=== PATIENT | female | born 1960 | race Caucasian/White ===

== ENCOUNTER 2017-02-19 12:49 | Inpatient (IN) | payer BC ==
[~2017-02-19] VITALS: Ht 180.3 cm; Wt 115.5 kg
[~2017-02-19 12:49] MED LIST: BENADRYL PO; LASIX 20MG TABL20 MG PO; NO HOME MEDICATIONS; SEPTRA DS 8001 TAB PO; SYNTHROID0.1 MG/TAB PO; TAMOXIFEN CITRA20 MG PO; TYLENOL 500MG500 MG PO
[2017-02-19 14:07] LABS: BASO # 0.1 (0.0-0.2); BASO % 0.3 % (0.0-2.0); EOS # 0.1 (0.0-0.7); EOS % 0.4 % (0-4.0); GRAN # 12.7 (1.4-6.5); GRAN % 79.5 % (42.2-75.2); HEMATOCRIT 37.1 % (37.0-47.0); HEMOGLOBIN 12.2 g/dl (12.5-16.0); LYMPH # 2.5 (1.2-3.4); LYMPH % 15.5 % (20.0-51.0); MEAN CELL VOLUME 84 fl (80.0-100.0); MEAN CORPUSCULAR HEMOGLOBIN 28 pg (27.0-31.0); MEAN CORPUSCULAR HGB CONC 33 g/dl (33.0-37.0); MEAN PLATELET VOLUME 8.9 fl (7.4-10.4); MONO # 0.6 (0.1-0.6); MONO % 3.9 % (1.7-9.3); PLATELET COUNT 323 K/mm3 (130-400); RED BLOOD COUNT 4.42 M/mm3 (4.10-5.30); REDCELL DISTRIBUTION WIDTH-CV 14.6 % (11.5-14.5)
[2017-02-19 14:24] LABS: ADJUSTED CALCIUM 9.5 mg/dL (8.4-10.2); ALBUMIN 3.8 gm/dL (3.5-5.0); BILIRUBIN,TOTAL 1.1 mg/dL (0.0-1.0); CALCIUM 9.3 mg/dL (8.4-10.2); CREATININE, serum 1.13 mg/dL (0.52-1.25); POTASSIUM 3.3 mmol/L (3.4-5.0); TOTAL PROTEIN 7.3 gm/dL (6.4-8.2)
[2017-02-19 14:43] LABS: C-REACTIVE PROTEIN 22.4 mg/dL (0.0-0.9)
[2017-02-19] MEDS ORDERED: SYNTHROID 0.10.15 MG PO (15:29)
[2017-02-19 17:33] VITALS: BP 116/58; PULSE 91; TEMP 98.1
[2017-02-19 17:39] VITALS: BP 116/58; PULSE 91; TEMP 98.7
[2017-02-19] MEDS ORDERED: PROAIR HFA0.09 MG/AC IH (18:11)
[2017-02-19 20:48] VITALS: BP 114/58; PULSE 82; TEMP 100.5
[2017-02-19 23:39] VITALS: BP 118/60; PULSE 97; TEMP 100
[2017-02-20 03:25] VITALS: BP 110/64; PULSE 85; TEMP 98.2
[2017-02-20 07:30] VITALS: BP 118/61; PULSE 75; TEMP 98.5
[2017-02-20 11:29] LABS: BASO # 0.1 (0.0-0.2); BASO % 0.4 % (0.0-2.0); EOS # 0.5 (0.0-0.7); EOS % 4.3 % (0-4.0); GRAN # 8.6 (1.4-6.5); GRAN % 70.8 % (42.2-75.2); LYMPH # 2.1 (1.2-3.4); LYMPH % 17.5 % (20.0-51.0); MEAN CELL VOLUME 88 fl (80.0-100.0); MEAN CORPUSCULAR HGB CONC 32 g/dl (33.0-37.0); MEAN PLATELET VOLUME 9.5 fl (7.4-10.4); MONO # 0.8 (0.1-0.6); MONO % 6.8 % (1.7-9.3); PLATELET COUNT 311 K/mm3 (130-400); RED BLOOD COUNT 3.92 M/mm3 (4.10-5.30); WHITE BLOOD COUNT 12.2 K/mm3 (4.8-10.8)
[2017-02-20 11:36] LABS: CALCIUM 8.8 mg/dL (8.4-10.2); CREATININE, serum 0.9 mg/dL (0.52-1.25); POTASSIUM 3.6 mmol/L (3.4-5.0)
[2017-02-20 11:38] LABS: HEMATOCRIT 34.3 % (37.0-47.0); MEAN CORPUSCULAR HEMOGLOBIN 28 pg (27.0-31.0)
[2017-02-20 12:18] VITALS: BP 131/63; PULSE 79; TEMP 99.2
[2017-02-20 15:38] VITALS: BP 115/65; PULSE 95; TEMP 100.3
[2017-02-20 19:48] VITALS: BP 122/69; PULSE 80; TEMP 98.4
[2017-02-20 23:47] VITALS: BP 112/54; PULSE 81; TEMP 98
[2017-02-21 03:46] VITALS: BP 118/67; PULSE 79; TEMP 98.3
[2017-02-21 07:21] VITALS: BP 123/66; PULSE 74; TEMP 98.7
[2017-02-21 07:38] LABS: BASO % 0.3 % (0.0-2.0); GRAN # 5.5 (1.4-6.5); GRAN % 55.4 % (42.2-75.2); LYMPH # 2.6 (1.2-3.4); LYMPH % 25.8 % (20.0-51.0); MEAN CELL VOLUME 86 fl (80.0-100.0); MEAN CORPUSCULAR HGB CONC 32 g/dl (33.0-37.0); MEAN PLATELET VOLUME 9.6 fl (7.4-10.4); MONO # 0.8 (0.1-0.6); MONO % 8.3 % (1.7-9.3); PLATELET COUNT 331 K/mm3 (130-400); REDCELL DISTRIBUTION WIDTH-CV 14.6 % (11.5-14.5)
[2017-02-21 07:49] LABS: CREATININE, serum 0.9 mg/dL (0.52-1.25); POTASSIUM 3.8 mmol/L (3.4-5.0)
[2017-02-21 08:04] LABS: HEMATOCRIT 34.5 % (37.0-47.0); HEMOGLOBIN 10.9 g/dl (12.5-16.0); MEAN CORPUSCULAR HEMOGLOBIN 27 pg (27.0-31.0)
[2017-02-21 08:32] LABS: C-REACTIVE PROTEIN 16.9 mg/dL (0.0-0.9)
[2017-02-21 11:36] VITALS: BP 128/68; PULSE 78; TEMP 99
[2017-02-21 15:55] VITALS: BP 130/72; PULSE 84; TEMP 99.4
[2017-02-21 20:20] VITALS: BP 125/60; PULSE 84; TEMP 98.2
[2017-02-21 23:55] VITALS: BP 121/62; PULSE 80; TEMP 98.4
[2017-02-22 03:23] VITALS: BP 102/61; PULSE 70; TEMP 97.7
[2017-02-22 07:49] VITALS: BP 108/67; PULSE 80; TEMP 99.2
[2017-02-22 09:40] LABS: BASO % 0.2 % (0.0-2.0); EOS # 1.1 (0.0-0.7); EOS % 12.9 % (0-4.0); GRAN # 4.6 (1.4-6.5); GRAN % 56.5 % (42.2-75.2); HEMOGLOBIN 12.2 g/dl (12.5-16.0); LYMPH # 1.9 (1.2-3.4); LYMPH % 23.2 % (20.0-51.0); MEAN CELL VOLUME 84 fl (80.0-100.0); MEAN CORPUSCULAR HEMOGLOBIN 28 pg (27.0-31.0); MEAN CORPUSCULAR HGB CONC 33 g/dl (33.0-37.0); MEAN PLATELET VOLUME 10.9 fl (7.4-10.4); MONO # 0.6 (0.1-0.6); MONO % 6.7 % (1.7-9.3); PLATELET COUNT 249 K/mm3 (130-400); REDCELL DISTRIBUTION WIDTH-CV 14.4 % (11.5-14.5); WHITE BLOOD COUNT 8.2 K/mm3 (4.8-10.8)
[2017-02-22 09:45] LABS: HEMATOCRIT 36.8 % (37.0-47.0)
[2017-02-22 11:07] VITALS: BP 118/67; PULSE 83; TEMP 98.9
[2017-02-22 15:20] VITALS: BP 119/70; PULSE 86; TEMP 99.3
[2017-02-22 18:19] LABS: CHLAMYDIA/TRACH by PCR Female NOT DETECTED; NEISSERIA GON by PCR Female NOT DETECTED
[2017-02-22 20:25] VITALS: BP 123/78; PULSE 98; TEMP 98.7
[2017-02-23 00:34] VITALS: BP 106/63; PULSE 70; TEMP 98.1
[2017-02-23 05:08] VITALS: BP 120/62; PULSE 67; TEMP 97.7
[2017-02-23 07:27] LABS: MEAN CELL VOLUME 85 fl (80.0-100.0); MEAN CORPUSCULAR HGB CONC 32 g/dl (33.0-37.0); MEAN PLATELET VOLUME 9.6 fl (7.4-10.4); RED BLOOD COUNT 4.21 M/mm3 (4.10-5.30); REDCELL DISTRIBUTION WIDTH-CV 14.6 % (11.5-14.5); WHITE BLOOD COUNT 9.2 K/mm3 (4.8-10.8)
[2017-02-23 07:43] LABS: ADD PATHOLOGY DIFF REVIEW NO; HEMATOCRIT 35.8 % (37.0-47.0); HEMOGLOBIN 11.5 g/dl (12.5-16.0); MEAN CORPUSCULAR HEMOGLOBIN 27 pg (27.0-31.0); PLATELET COUNT 393 K/mm3 (130-400)
[2017-02-23 07:54] LABS: CALCIUM 8.7 mg/dL (8.4-10.2); CREATININE, serum 0.87 mg/dL (0.52-1.25)
[2017-02-23 07:58] VITALS: BP 117/60; PULSE 71; TEMP 98.7
[2017-02-23 11:13] VITALS: BP 112/69; PULSE 82; TEMP 97.9
[2017-02-23 15:02] LABS: BAND 13 % (0-10); EOSINOPHIL 11 % (0-4); NEUTROPHILS 45 % (42.0-75.2); TOTAL CELLS COUNTED 100
[2017-02-23 15:03] LABS: ANISOCYTOSIS 1+; PLATELET ESTIMATE INCREASED (NORMAL)
[2017-02-23] MEDS ORDERED: CLEOCIN HCL300 MG PO (15:18)
== END 2017-02-23 16:38 | disposition home or self-care (01) | DRG 603 ==
LOC: COL.ER 12:49 → MEDICAL 14:37
PROVIDERS: Emergency Medicine; Internal Medicine Infectious Disease; Nurse Practitioner Family; Physician Assistant
DX: L03.113 Cellulitis of right upper limb (principal); L03.115 Cellulitis of right lower limb; E66.01 Morbid (severe) obesity due to excess calories; G62.9 Polyneuropathy, unspecified; E03.9 Hypothyroidism, unspecified; I87.2 Venous insufficiency (chronic) (peripheral); E87.6 Hypokalemia; J45.909 Unspecified asthma, uncomplicated; Z85.3 Personal history of malignant neoplasm of breast; Z68.35 Body mass index [BMI] 35.0-35.9, adult
CPT/HCPCS: 99223-AI; 99232-AI; 99239; J1650; J2270; J2405; J3370; J7030; J7050

== ENCOUNTER 2017-05-14 08:00 | Outpatient (RCR) | payer BC ==
[~2017-05-14 08:00] MED LIST changes: +CLEOCIN HCL300 MG PO; +PROAIR HFA0.09 MG/AC IH; +SYNTHROID 0.10.15 MG PO
== END 2017-06-05 12:49 ==
LOC: WSPT 08:00
DX: Z51.89 Encounter for other specified aftercare (principal); I97.2 Postmastectomy lymphedema syndrome; R60.1 Generalized edema; Z90.13 Acquired absence of bilateral breasts and nipples; Z85.3 Personal history of malignant neoplasm of breast; Z92.3 Personal history of irradiation

== ENCOUNTER → 2017-07-27 | Outpatient (CLI) | payer BC | LOC: COL.RAD 08:30 | DX: K57.30 Diverticulosis of large intestine without perforation or abscess without bleeding (principal); N20.0 Calculus of kidney; D25.9 Leiomyoma of uterus, unspecified | CPT/HCPCS: Q9967 ==

== ENCOUNTER 2017-09-29 14:02 | Inpatient (IN) | payer BC ==
[2017-09-29] VITALS (31 sets, daily range): BP systolic 106–123; BP diastolic 75–78; PULSE 99–104; TEMP 98–98.2; O2SAT 90–100
[~2017-09-29] VITALS: Ht 177.8 cm; Wt 101.6 kg
[2017-09-29 14:33] LABS: BASO % 0.3 % (0.0-2.0); EOS # 0.3 (0.0-0.7); EOS % 2.7 % (0-4.0); GRAN # 7.3 (1.4-6.5); GRAN % 63.1 % (42.2-75.2); HEMATOCRIT 40.3 % (37.0-47.0); HEMOGLOBIN 12.8 g/dl (12.5-16.0); LYMPH # 2.9 (1.2-3.4); LYMPH % 25.2 % (20.0-51.0); MEAN CELL VOLUME 83 fl (80.0-100.0); MEAN CORPUSCULAR HEMOGLOBIN 27 pg (27.0-31.0); MEAN CORPUSCULAR HGB CONC 32 g/dl (33.0-37.0); MEAN PLATELET VOLUME 9.3 fl (7.4-10.4); MONO % 8.4 % (1.7-9.3); PLATELET COUNT 338 K/mm3 (130-400); RED BLOOD COUNT 4.83 M/mm3 (4.10-5.30); WHITE BLOOD COUNT 11.6 K/mm3 (4.8-10.8)
[2017-09-29 14:54] LABS: ADJUSTED CALCIUM 9.4 mg/dL (8.4-10.2); ALBUMIN 4.2 gm/dL (3.5-5.0); BILIRUBIN,TOTAL 0.8 mg/dL (0.0-1.0); CALCIUM 9.6 mg/dL (8.4-10.2); CREATININE, serum 1.09 mg/dL (0.52-1.25); POTASSIUM 4.1 mmol/L (3.4-5.0); TOTAL PROTEIN 7.9 gm/dL (6.4-8.2)
[2017-09-29 15:24] LABS: TROPONIN-I 0.035 ng/mL (0.000-0.034)
[2017-09-29 15:59] LABS: INR 1.1 (0.8-3.0); PROTHROMBIN TIME 13.1 SECONDS (9.7-12.8)
[2017-09-29] MEDS ORDERED: OMEGA-3 1000 MG1 CAP PO (20:16)
[2017-09-29] MEDS ORDERED: VITAMIND3 5000 PO (20:17)
[2017-09-29] MEDS ORDERED: ASPIRIN 81M81 MG/TA2 PO (20:18)
[2017-09-29] MEDS ORDERED: NEURONTIN100 MG/CAP PO (20:20)
[2017-09-30] VITALS (848 sets, daily range): BP systolic 104–146; BP diastolic 62–72; PULSE 67–102; TEMP 98.1–98.6; O2SAT 76–99
[2017-09-30 05:39] LABS: BASO % 0.3 % (0.0-2.0); EOS # 0.4 (0.0-0.7); EOS % 4.2 % (0-4.0); GRAN # 5.6 (1.4-6.5); GRAN % 54.8 % (42.2-75.2); LYMPH # 3.2 (1.2-3.4); LYMPH % 31.6 % (20.0-51.0); MEAN CELL VOLUME 84 fl (80.0-100.0); MEAN CORPUSCULAR HGB CONC 32 g/dl (33.0-37.0); MEAN PLATELET VOLUME 9.2 fl (7.4-10.4); MONO # 0.9 (0.1-0.6); MONO % 8.8 % (1.7-9.3); PLATELET COUNT 285 K/mm3 (130-400); RED BLOOD COUNT 3.97 M/mm3 (4.10-5.30); WHITE BLOOD COUNT 10.3 K/mm3 (4.8-10.8)
[2017-09-30 05:40] LABS: HEMATOCRIT 33.4 % (37.0-47.0); HEMOGLOBIN 10.6 g/dl (12.5-16.0); MEAN CORPUSCULAR HEMOGLOBIN 27 pg (27.0-31.0)
[2017-09-30 05:54] LABS: CALCIUM 8.6 mg/dL (8.4-10.2); CREATININE, serum 0.97 mg/dL (0.52-1.25); POTASSIUM 3.7 mmol/L (3.4-5.0)
[2017-09-30 06:02] LABS: TROPONIN-I 0.016 ng/mL (0.000-0.034)
[2017-10-01] VITALS (729 sets, daily range): BP systolic 92–149; BP diastolic 50–77; PULSE 78–101; TEMP 98–99.3; O2SAT 70–100
[2017-10-01 06:23] LABS: MEAN CELL VOLUME 84 fl (80.0-100.0); MEAN CORPUSCULAR HGB CONC 32 g/dl (33.0-37.0); MEAN PLATELET VOLUME 9.2 fl (7.4-10.4); PLATELET COUNT 289 K/mm3 (130-400); RED BLOOD COUNT 3.84 M/mm3 (4.10-5.30); WHITE BLOOD COUNT 8.6 K/mm3 (4.8-10.8)
[2017-10-01 06:30] LABS: HEMATOCRIT 32.4 % (37.0-47.0); HEMOGLOBIN 10.3 g/dl (12.5-16.0); MEAN CORPUSCULAR HEMOGLOBIN 27 pg (27.0-31.0)
[2017-10-02 03:33] VITALS: BP 111/48; PULSE 76; TEMP 98.2
[2017-10-02 07:16] LABS: CALCIUM 9.9 mg/dL (8.4-10.2); CREATININE, serum 0.91 mg/dL (0.52-1.25); POTASSIUM 3.5 mmol/L (3.4-5.0)
[2017-10-02 07:27] VITALS: BP 141/73; PULSE 89; TEMP 98.4
[2017-10-02 07:30] VITALS: BP 141/73; PULSE 89; TEMP 98.4
[2017-10-02] MEDS ORDERED: DOXYCYCLINE 10100 MG PO (07:45)
[2017-10-02] MEDS ORDERED: ELIQUIS 5MG PO (07:47)
[2017-10-02 08:44] LABS: FACTOR V LEIDEN MUTATION B Negative (Negative); PT G20210A MUTATION B Negative (Negative)
[2017-10-02 10:48] VITALS: BP 114/67; PULSE 100; TEMP 98.2
[2017-10-02 11:55] LABS: ANTI-THROMBIN III 61 % (72-128)
[2017-10-02 11:58] LABS: PROTEIN C ACTIVITY 91 % (70-150)
[2017-10-02 12:02] LABS: PROTEIN S ACTIVITY 140 % (65-149)
[2017-10-02 14:15] LABS: LUPUS ANTICOAGULANT PTT 29 sec (26 - 36)
[2017-10-02 14:20] LABS: LUPUS ANTICOAGULANT INR 1.2 (()); LUPUS ANTICOAGULANT PT 12.9 sec (())
[2017-10-02 14:26] LABS: LUPUS ANTICOAGULANT DRVVT 0.8 ratio (())
[2017-10-02 18:32] LABS: .ANTICARDIOLIPIN IGG <9.4 GPL (()); .ANTICARDIOLIPIN IGM <9.4 MPL (())
== END 2017-10-02 12:00 | disposition home or self-care (01) | DRG 176 ==
LOC: COL.ER 14:02 → MEDICAL 16:40 → ICU 16:40 → IMCU 10-01 11:13 → MEDICAL 10-01 17:38
PROVIDERS: Emergency Medicine; Internal Medicine; Nurse Practitioner Family; Physician Assistant
DX: I26.99 Other pulmonary embolism without acute cor pulmonale (principal); I82.432 Acute embolism and thrombosis of left popliteal vein; I82.442 Acute embolism and thrombosis of left tibial vein; L03.115 Cellulitis of right lower limb; Z85.3 Personal history of malignant neoplasm of breast; J45.909 Unspecified asthma, uncomplicated; G62.0 Drug-induced polyneuropathy; T45.1X5S Adverse effect of antineoplastic and immunosuppressive drugs, sequela; I27.20 Pulmonary hypertension, unspecified; G47.34 Idiopathic sleep related nonobstructive alveolar hypoventilation
CPT/HCPCS: 99223-AI; 99233-AI; 99239; J1644; J1650; J7030; J7050; Q9967

== ENCOUNTER → 2018-06-24 | Outpatient (CLI) | payer BC ==
[~2018-06-24] MED LIST changes: +ASPIRIN 81M81 MG/TA2 PO; +DOXYCYCLINE 10100 MG PO; +ELIQUIS 5MG PO; +NEURONTIN100 MG/CAP PO; +OMEGA-3 1000 MG1 CAP PO; +VITAMIND3 5000 PO
== END ==
LOC: COL.RAD 08:11
DX: I26.99 Other pulmonary embolism without acute cor pulmonale (principal)
CPT/HCPCS: Q9967

== ENCOUNTER 2018-10-16 15:24 | Outpatient (RCR) | payer BC | END 2018-12-18 14:45 | disposition home or self-care (01) | LOC: WSPT 15:24 | DX: R60.1 Generalized edema (principal) ==

== ENCOUNTER → 2018-10-31 | Outpatient (CLI) | payer BC | LOC: COL.RAD 12:22 | DX: J18.9 Pneumonia, unspecified organism (principal); J40 Bronchitis, not specified as acute or chronic; R91.8 Other nonspecific abnormal finding of lung field; Z85.3 Personal history of malignant neoplasm of breast; Z98.82 Breast implant status ==

== ENCOUNTER 2019-07-04 01:45 | Emergency (ER) | payer BC ==
[~2019-07-04] VITALS: Ht 177.8 cm; Wt 113.6 kg
[2019-07-04 01:51] VITALS: TEMP 97.9
[2019-07-04 02:06] LABS: COLLECTION METHOD CLEAN CATCH
[2019-07-04 02:10] LABS: PH 5 (5-8); SQUAMOUS EPITHELIAL 0-2 /hpf; URINE APPEARANCE Clear; URINE BACTERIA Rare /hpf; URINE BILIRUBIN Negative (NEGATIVE); URINE BLOOD Negative (NEGATIVE); URINE COLOR Yellow; URINE GLUCOSE Negative (NEGATIVE); URINE KETONE Negative (NEGATIVE); URINE LEUKOCYTE ESTERASE Negative (NEGATIVE); URINE NITRATE Negative (NEGATIVE); URINE PROTEIN(semi-quant) Negative (NEGATIVE); URINE RBC 0-2 /hpf; URINE UROBILINOGEN Negative (NEGATIVE)
[2019-07-04 02:31] LABS: BASO # 0.1 (0.0-0.2); BASO % 0.6 % (0.0-2.0); EOS # 0.5 (0.0-0.7); EOS % 4.5 % (0-4.0); GRAN # 5.2 (1.4-6.5); GRAN % 49.7 % (42.2-75.2); HEMATOCRIT 40.3 % (37.0-47.0); HEMOGLOBIN 12.5 g/dl (12.5-16.0); LYMPH # 3.9 (1.2-3.4); MEAN CELL VOLUME 86 fl (80.0-100.0); MEAN CORPUSCULAR HEMOGLOBIN 27 pg (27.0-31.0); MEAN CORPUSCULAR HGB CONC 31 g/dl (33.0-37.0); MEAN PLATELET VOLUME 8.9 fl (7.4-10.4); MONO # 0.8 (0.1-0.6); MONO % 7.7 % (1.7-9.3); PLATELET COUNT 393 K/mm3 (130-400); RED BLOOD COUNT 4.67 M/mm3 (4.10-5.30); REDCELL DISTRIBUTION WIDTH-CV 14.6 % (11.5-14.5)
[2019-07-04 02:42] LABS: BILIRUBIN,TOTAL 0.3 mg/dL (0.0-1.0); C-REACTIVE PROTEIN 2.3 mg/dL (0.0-0.9); CALCIUM 9.3 mg/dL (8.4-10.2); CREATININE, serum 0.83 (0.52-1.25); POTASSIUM 4.2 mmol/L (3.4-5.0); TOTAL PROTEIN 7.5 gm/dL (6.4-8.2)
[2019-07-04 03:55] VITALS: BP 146/92
[2019-07-04] MEDS ORDERED: DOXYCYCLINE HY100 MG PO (04:38)
[2019-07-04 04:54] VITALS: PULSE 74
== END 2019-07-04 04:54 | disposition home or self-care (01) ==
LOC: COL.ER 01:45
PROVIDERS: Emergency Medicine
DX: I88.0 Nonspecific mesenteric lymphadenitis (principal); N61.0 Mastitis without abscess; E03.9 Hypothyroidism, unspecified; Z86.718 Personal history of other venous thrombosis and embolism; Z86.711 Personal history of pulmonary embolism; Z85.3 Personal history of malignant neoplasm of breast; Z87.442 Personal history of urinary calculi
CPT/HCPCS: J1885; J7030; Q9967

== ENCOUNTER → 2019-10-20 | Outpatient (CLI) | payer BC ==
[~2019-10-20] MED LIST changes: +DOXYCYCLINE HY100 MG PO
== END ==
LOC: COL.PUL 08:28
DX: R06.09 Other forms of dyspnea (principal); Z86.711 Personal history of pulmonary embolism

== ENCOUNTER 2020-08-02 14:15 | Inpatient (IN) | payer BC ==
[~2020-08-02] VITALS: Ht 177.8 cm; Wt 122.7 kg
[2020-08-02 14:40] LABS: BASO % 0.3 % (0.0-2.0); EOS # 0.3 (0.0-0.7); EOS % 2.6 % (0-4.0); GRAN # 7.6 (1.4-6.5); GRAN % 63.9 % (42.2-75.2); HEMATOCRIT 42.1 % (37.0-47.0); HEMOGLOBIN 13.3 g/dl (12.5-16.0); LYMPH # 3.2 (1.2-3.4); LYMPH % 26.7 % (20.0-51.0); MEAN CELL VOLUME 83 fl (80.0-100.0); MEAN CORPUSCULAR HEMOGLOBIN 26 pg (27.0-31.0); MEAN CORPUSCULAR HGB CONC 32 g/dl (33.0-37.0); MONO # 0.7 (0.1-0.6); MONO % 6.2 % (1.7-9.3); PLATELET COUNT 449 K/mm3 (130-400); RED BLOOD COUNT 5.07 M/mm3 (4.10-5.30); REDCELL DISTRIBUTION WIDTH-CV 14.7 % (11.5-14.5)
[2020-08-02 14:45] LABS: INR 1.2 (0.8-3.0); PROTHROMBIN TIME 13.5 SECONDS (9.7-12.8)
[2020-08-02 14:48] LABS: PARTIAL THROMBOPLASTIN TIME 36.4 SECONDS (26.0-37.0)
[2020-08-02 15:16] LABS: ALANINE AMINOTRANSFERASE 29 U/L (4-34); ALBUMIN 4.3 gm/dL (3.5-5.0); ALKALINE PHOSPHATASE 101 U/L (50-136); ANION GAP 13 mmol/L (7-16); AST,SGOT 39 U/L (15-37); BILIRUBIN,TOTAL 0.4 mg/dL (0.0-1.0); BLOOD UREA NITROGEN 14 mg/dL (7-17); CALCIUM 9.1 mg/dL (8.4-10.2); CARBON DIOXIDE 22 mmol/L (22-30); CHLORIDE 105 mmol/L (98-107); CREATININE, serum 1.04 (0.52-1.25); GLUCOSE 155 mg/dL (74-106); MAGNESIUM 1.8 mg/dL (1.6-2.3); POTASSIUM 3.5 mmol/L (3.4-5.0); SODIUM 140 mmol/L (137-145)
[2020-08-02 15:29] LABS: TROPONIN-I < 0.012 ng/mL (0.000-0.035)
--- NOTE | 2020-08-02 17:35 | NUR ---
Pt in room at this time. Has no c/o pain or discomfort at this time. Assessment completed. No further concerns. Will endorse arrival to assistant shift supervisor RN.
[2020-08-02 17:50] VITALS: BP 141/74; PULSE 95; TEMP 98.2
--- NOTE | 2020-08-02 19:42 | NUR ---
Troponin 0.061. Called to TRAVIS Westfall.
[2020-08-02 20:19] VITALS: BP 112/73; PULSE 121; TEMP 98.6
--- NOTE | 2020-08-02 21:25 | NUR ---
Patient assessed at this time. Alert and oriented x 4, and able to make needs known. Denies having pain and discomfort at this time. Peripheral INT to left AC. Site is without redness, warmth, swelling, and pain. Denies having SOB and dyspnea. LS CTA. Respirations even and unlabored. HRR. Telemetry in place: normal sinus. Capillary refill less than 3 seconds. Non-tenting skin turgor. BSAx4. Abdomen soft and non-tender. 1+ edema BLE. Patient took shower. Voices no questions, needs, or concerns at this time. Resting in bed with call light within reach.
[2020-08-03] VITALS (10 sets, daily range): BP systolic 99–125; BP diastolic 55–73; PULSE 73–93; TEMP 98–98.5
--- NOTE | 2020-08-03 05:08 | NUR ---
Patient has been resting in bed with call light within reach. Has denied having pain and discomfort this shift. NPO for Gianfrancoan today.
--- NOTE | 2020-08-03 06:52 | NUR ---
Pt sitting in recliner this morning. Has no c/o pain or discomfort. Pt states she is just tired. Assessment completed. Pt has been NPO for Lexiscan this AM, and no caffiene. Pt denies any needs at this time. Call light within reach, No further concerns.
[2020-08-03 07:38] LABS: BASO % 0.4 % (0.0-2.0); EOS # 0.4 (0.0-0.7); EOS % 4.1 % (0-4.0); GRAN # 5.8 (1.4-6.5); GRAN % 59.6 % (42.2-75.2); HEMATOCRIT 39.4 % (37.0-47.0); HEMOGLOBIN 12.3 g/dl (12.5-16.0); LYMPH # 2.7 (1.2-3.4); LYMPH % 27.3 % (20.0-51.0); MEAN CELL VOLUME 86 fl (80.0-100.0); MEAN CORPUSCULAR HEMOGLOBIN 27 pg (27.0-31.0); MEAN CORPUSCULAR HGB CONC 31 g/dl (33.0-37.0); MEAN PLATELET VOLUME 9.1 fl (7.4-10.4); MONO # 0.8 (0.1-0.6); MONO % 8.4 % (1.7-9.3); PLATELET COUNT 387 K/mm3 (130-400); RED BLOOD COUNT 4.58 M/mm3 (4.10-5.30)
[2020-08-03 07:52] LABS: CALCIUM 8.5 mg/dL (8.4-10.2); MAGNESIUM 2.3 mg/dL (1.6-2.3)
[2020-08-03 07:55] LABS: INR 1.2 (0.8-3.0); PROTHROMBIN TIME 13.8 SECONDS (9.7-12.8)
[2020-08-03 08:31] LABS: ALBUMIN 3.8 gm/dL (3.5-5.0); BILIRUBIN,TOTAL 0.6 mg/dL (0.0-1.0); TOTAL PROTEIN 6.9 gm/dL (6.4-8.2)
--- NOTE | 2020-08-03 09:16 | NUR ---
Pt off floor at [facility]. Meds given per Employment Training Specialist recommendation. No further concern.
--- NOTE | 2020-08-03 10:03 | NUR ---
Initial visit; Patient appeared to like to visit and talked of her work and Pentecostalism. Paint Tester offered God's blessings and to keep patient in Paint Tester's prayers.
--- NOTE | 2020-08-03 10:50 | NUR ---
Pt returned from [employer]. Awaiting orders from provider for food/drink as well as Eliquis adminstration. No further concerns at this time. Call light within reach.
--- NOTE | 2020-08-03 13:29 | NUR ---
GALINA met with the patient to discuss discharge plan. The patient was guarded with her answers. The patient states that she has a home in [place], but has turned off all the utilities there, due to being in debt. She states that she has been living in her car and tucker her car in different spots, so it is not suspicious. She states that she works at [employer] in the [employer] and wears many hats there. She compares it to a engineering secretary. She states that she is also enrolled at [employer] and is a senior there. GALINA discussed FABIANA. The patient states that she makes too much to stay at [facility] and does not have any interest staying there. GALINA offered [facility]'s contact information. The patient reports that she would know how to contact them and is not interested in GALINA giving her that information. She reports independence with ADLs and does not have any DME. The patient's PCP is Dr. Ankit Mahan and she receives her medications at [facility]. The patient does not have a DPOA-HC. She states that she is not , has no children, and that her parents are . She states that she has six siblings: Ana, Prabha, Bill, Bill, Malcom, and Malik. GALINA discussed a DPOA-HC. The patient states that she is not interested in making a DPOA-HC and can make her own decisions. She states that if anything were to happen, she would want her elementary teacher, Darrion Vickey (ph#[phone]), notified. The patient reports that she plans to return back to her car upon discharge and states that she can take care of herself. She was not interested in any resources from GALINA. GALINA to continue to follow as needed. GALINA made an APS report. Intake ID#[id number].
--- NOTE | 2020-08-03 18:56 | NUR ---
REPORT GIVEN TO JASON BERUMEN
--- NOTE | 2020-08-03 20:00 | NUR ---
Patient assessed at this time. Alert and oriented x 4, and able to make needs known. Denies having pain and discomfort at this time. Peripheral INT to left AC flushed. Site is without redness, warmth, swelling, and pain. Denies SOB and dyspnea. LS CTA. Respirations even and unlabored. HRR. Telemetry in place: NS. Capillary refill less than 3 seconds. Non-tenting skin turgor. BSAx4. Abdomen soft and non-tender. 1+ edema BLE. Voices no questions, needs, or concerns at this time. Resting in bed with call light within reach.
[2020-08-04] VITALS (7 sets, daily range): BP systolic 102–139; BP diastolic 48–97; PULSE 72–87; TEMP 98.3–99
--- NOTE | 2020-08-04 05:18 | NUR ---
Patient has been resting in bed with call light within reach. Has voiced no questions, needs, or concerns. Denies having pain and discomfort. Telemetry in place, patient continues to be in normal sinus at this time.
[2020-08-04 07:48] LABS: BASO % 0.4 % (0.0-2.0); EOS # 0.4 (0.0-0.7); EOS % 3.9 % (0-4.0); GRAN # 6.1 (1.4-6.5); GRAN % 58.5 % (42.2-75.2); HEMATOCRIT 39.8 % (37.0-47.0); HEMOGLOBIN 12.4 g/dl (12.5-16.0); LYMPH # 3.1 (1.2-3.4); LYMPH % 29.7 % (20.0-51.0); MEAN CELL VOLUME 86 fl (80.0-100.0); MEAN CORPUSCULAR HEMOGLOBIN 27 pg (27.0-31.0); MEAN CORPUSCULAR HGB CONC 31 g/dl (33.0-37.0); MEAN PLATELET VOLUME 9.4 fl (7.4-10.4); MONO # 0.8 (0.1-0.6); MONO % 7.2 % (1.7-9.3); PLATELET COUNT 418 K/mm3 (130-400); RED BLOOD COUNT 4.61 M/mm3 (4.10-5.30); REDCELL DISTRIBUTION WIDTH-CV 14.9 % (11.5-14.5)
[2020-08-04 08:01] LABS: ANION GAP 9 mmol/L (7-16); BLOOD UREA NITROGEN 12 mg/dL (7-17); CALCIUM 8.8 mg/dL (8.4-10.2); CARBON DIOXIDE 27 mmol/L (22-30); CHLORIDE 104 mmol/L (98-107); CREATININE, serum 1.06 (0.52-1.25); GLUCOSE 93 mg/dL (74-106); MAGNESIUM 2.1 mg/dL (1.6-2.3); SODIUM 140 mmol/L (137-145)
[2020-08-04 08:09] LABS: INR 1.2 (0.8-3.0)
[2020-08-04 08:14] LABS: TROPONIN-I < 0.012 ng/mL (0.000-0.035)
[2020-08-04] MEDS ORDERED: MAGNESIUM ELEM300 MG PO (08:33)
--- NOTE | 2020-08-04 11:00 | NUR ---
Assessment completed, alert/oriented, vital signs stable, heart RRR/SR on tele, Qtc 451 this mroning and a.m Sotalol dose was given, she is up independently in he room, denies other needs at this time
--- NOTE | 2020-08-04 12:26 | NUR ---
Follow-up; Patient preparing to be discharged. Breaker Mechanic wished her well and offered God's blessings.
--- NOTE | 2020-08-04 19:33 | NUR ---
Pt assessment completed and documented. Pt sitting up in recliner at this time soaking her feet. Pt states after she soaks her feet she would like to shower. Pt alert and oriented x4. Complaints of 2/10 pain to her left ear that pt states is intermittent and is worse when she is lying down. Pt states she does not need anything for pain at this time. INT to left forearm CDI. Pt denies any other needs at this time. Call light within reach. Will continue to monitor
[2020-08-05 03:36] VITALS: BP 107/53; PULSE 75; TEMP 98.3
--- NOTE | 2020-08-05 06:26 | NUR ---
Pt rested well overnight. Pt was able to take a shower before bed last night. Pt denies any needs/concerns at this time. Call light within reach.
[2020-08-05 07:33] VITALS: BP 107/66; PULSE 70; TEMP 98.5
[2020-08-05] MEDS ORDERED: BETAPACE 80MG80 MG PO (10:47)
--- NOTE | 2020-08-05 10:56 | NUR ---
Assessment completed, alert/oriented, vital signs stable/ denies pain or discomfort, heart RRR/SR on tele, Qtc 444 and Sotalol dose given, denies needs at this time, plans for discharge today
[2020-08-05] MEDS ORDERED: SYNTHROID0.175 MG PO (11:01)
[2020-08-05 11:43] VITALS: BP 117/68; PULSE 72; TEMP 98.9
--- NOTE | 2020-08-05 15:31 | NUR ---
Patient is discharging home, I have discussed d/c instructions, scripts sent to pharmacy for her, IV and tele removed, patient ambulatory and I walked her out the door
== END 2020-08-05 15:33 | disposition home or self-care (01) | DRG 282 ==
LOC: COL.ER 14:15 → MEDICAL 15:57
PROVIDERS: Emergency Medicine; Physician Assistant; ADMIT Student in an Organized Health Care Education/Training Program
PROC: 5A2204Z Restoration of Cardiac Rhythm, Single (ICD-10-PCS; principal; 2020-08-02)
DX: I48.92 Unspecified atrial flutter (principal); I21.A1 Myocardial infarction type 2; E03.9 Hypothyroidism, unspecified; B35.1 Tinea unguium; E66.9 Obesity, unspecified; J45.909 Unspecified asthma, uncomplicated; Z85.3 Personal history of malignant neoplasm of breast; Z92.21 Personal history of antineoplastic chemotherapy; Z87.442 Personal history of urinary calculi; Z90.13 Acquired absence of bilateral breasts and nipples; Z86.718 Personal history of other venous thrombosis and embolism; Z86.711 Personal history of pulmonary embolism; Z68.38 Body mass index [BMI] 38.0-38.9, adult
CPT/HCPCS: 99222-AI; 99232-AI; A9500; J2405; J2704; J3475; J7030

== ENCOUNTER 2021-01-10 10:09 | Inpatient (IN) | payer BC ==
[~2021-01-10] VITALS: Ht 177.8 cm; Wt 121.4 kg
[~2021-01-10 10:09] MED LIST changes: +BETAPACE 80MG80 MG PO; +MAGNESIUM ELEM300 MG PO; +SYNTHROID0.175 MG PO
[2021-01-10 10:46] LABS: COLLECTION METHOD CLEAN CATCH
[2021-01-10 10:50] LABS: HEMATOCRIT 42.3 % (37.0-47.0); HEMOGLOBIN 13.4 g/dl (12.5-16.0); MEAN CELL VOLUME 82 fl (80.0-100.0); MEAN CORPUSCULAR HEMOGLOBIN 26 pg (27.0-31.0); MEAN CORPUSCULAR HGB CONC 32 g/dl (33.0-37.0); PLATELET COUNT 411 K/mm3 (130-400); RED BLOOD COUNT 5.14 M/mm3 (4.10-5.30)
[2021-01-10 10:52] LABS: MUCOUS Present /lpf; PH 5 (5-8); SQUAMOUS EPITHELIAL 0-2 /hpf; URINE APPEARANCE Clear; URINE BACTERIA None Seen /hpf; URINE BILIRUBIN Negative (NEGATIVE); URINE BLOOD Negative (NEGATIVE); URINE COLOR Yellow; URINE GLUCOSE Negative (NEGATIVE); URINE KETONE Negative (NEGATIVE); URINE LEUKOCYTE ESTERASE Negative (NEGATIVE); URINE NITRATE Negative (NEGATIVE); URINE PROTEIN(semi-quant) Negative (NEGATIVE); URINE UROBILINOGEN Negative (NEGATIVE); URINE WBC 0-2 /hpf
[2021-01-10 11:00] LABS: ALBUMIN 4.1 gm/dL (3.5-5.0); BILIRUBIN,TOTAL 0.9 mg/dL (0.0-1.0); CALCIUM 8.7 mg/dL (8.4-10.2); CREATININE, serum 0.86 (0.52-1.25); POTASSIUM 3.6 mmol/L (3.4-5.0); TOTAL PROTEIN 7.5 gm/dL (6.4-8.2)
[2021-01-10 11:27] LABS: BAND 16 % (0-10); BASOPHIL 1 % (0-2); EOSINOPHIL 1 % (0-4); LYMPHOCYTE 8 % (20.0-51.0); NEUTROPHILS 71 % (42.0-75.2)
[2021-01-10 11:28] LABS: HYPOCHROMIA 2+; PLATELET ESTIMATE NORMAL (NORMAL)
[2021-01-10] MEDS ORDERED: TAMBOCOR50 MG PO (12:57)
[2021-01-10 13:40] VITALS: BP 151/64; PULSE 108; TEMP 100
--- NOTE | 2021-01-10 13:45 | NUR ---
Patient up from ER. Ambulated from streacher to recliner with SBA. IV to LAC with fluids and antibiotics infusing per orders. Patient denies pain at this time. C-collar on, patient states from previous back injury. States she is still having mild nausea. Would like something to eat. Educated patient on visitation policy and oriented patient to room. Denies further needs at this time.
[2021-01-10] MEDS ORDERED: KAPSPARGO SPRIN25 MG PO (13:57)
--- NOTE | 2021-01-10 14:02 | NUR ---
Contacted [facility], patient has red hives to right arm,states she did not have them this morning. Stopped antibiotic at this time.
[2021-01-10] MEDS ORDERED: SYNTHROID0.112 MG/T PO (14:59)
[2021-01-10] MEDS ORDERED: SYNTHROID0.05 MG/TA PO (14:59)
[2021-01-10] MEDS ORDERED: HCTZ12.5TAB PO (14:59)
[2021-01-10] MEDS ORDERED: LIPITOR 10MG10 MG PO (14:59)
[2021-01-10 16:00] VITALS: BP 106/57; PULSE 97; TEMP 99
--- NOTE | 2021-01-10 16:45 | NUR ---
Dr. Gallo in to see patient
--- NOTE | 2021-01-10 18:05 | NUR ---
Patient doing well this afternoon. States she is feeling better and not having as much nausea, would like to eat something other than clear liquids. Educated patient on diet orders. Fluids infusing per orders at this time. Patient denies pain. Deneis further needs at this time. Will report off to frontload driver.
[2021-01-10 20:08] VITALS: BP 105/54; PULSE 99; TEMP 97.6
--- NOTE | 2021-01-10 20:45 | NUR ---
Patient called and complained of having bad chest pain. Called VIRGEN Merlos, to notify her. Orders for EKG and troponin.
--- NOTE | 2021-01-10 21:15 | NUR ---
Chelita in to see patient. Patient reports she is no longer having chest pain.
[2021-01-10 23:33] VITALS: BP 104/52; PULSE 84; TEMP 98
[2021-01-11 04:13] VITALS: BP 106/58; PULSE 79; TEMP 98.9
--- NOTE | 2021-01-11 04:43 | NUR ---
Patient complains that she was having some chest pain again. Patient's vitals are stable. BP 130/68, heart rate 102, and oxygen 96%. Patient's lungs sound clear. Patient states when repositioned she feels more comfortable.
[2021-01-11 06:58] LABS: CALCIUM 7.1 mg/dL (8.4-10.2); CREATININE, serum 0.84 (0.52-1.25)
[2021-01-11 06:59] LABS: BASO % 0.2 % (0.0-2.0); EOS # 0.2 (0.0-0.7); GRAN # 6.6 (1.4-6.5); LYMPH # 1.6 (1.2-3.4); LYMPH % 16.9 % (20.0-51.0); MEAN CELL VOLUME 85 fl (80.0-100.0); MEAN CORPUSCULAR HGB CONC 31 g/dl (33.0-37.0); MEAN PLATELET VOLUME 9.3 fl (7.4-10.4); MONO # 0.9 (0.1-0.6); MONO % 9.5 % (1.7-9.3); REDCELL DISTRIBUTION WIDTH-CV 15.3 % (11.5-14.5)
[2021-01-11 07:00] LABS: HEMATOCRIT 33.1 % (37.0-47.0); HEMOGLOBIN 10.3 g/dl (12.5-16.0); MEAN CORPUSCULAR HEMOGLOBIN 26 pg (27.0-31.0); PLATELET COUNT 302 K/mm3 (130-400)
[2021-01-11 07:19] VITALS: BP 95/37; PULSE 101; TEMP 99.5
--- NOTE | 2021-01-11 08:00 | NUR ---
PATIENT IS A&O, REPORTS SHE IS TIRED AND WASN'T ABLE TO SLEEP WELL LAST NIGHT. UPON ENTERING ROOM, PATIENT WAS SLEEPING AT THE FOOT OF THE HOSPITAL BED WITH A C-COLLAR INPLACE. WHEN ASKED, PATIENT REPORTS SHE HAD A NECK SX WITH BONE GRAPH IN 1998 AND HAS WORN THE C-COLLAR AT FOR NECK ALIGNMENT EVER SINCE. NOTED LOW GRADE TEMP OF 99.5 BUT PATIENT HAD LOTS OF COVERS ON, REMOVED SOME. HR IS TACHY AT 101. ALL OTHER VSS WITH TELE INPLACE. DENIES PAIN OR NAUSEA AT THIS TIME. PATIENT ASKING FOR UMANZOR. CLEAR LIQUID DIET ORDERED. PASSING GAS, LAST BM WAS DIARRHEA YESTERDAY 0530. PATIENT IS OBESE, ABD ROUND, SOFT AND WITH POSITIVE BOWL SOUNDS. IV FLUIDS INFUSING VIA PUMP INTO LEFT AC IV. VOIDING SUFFICENT AMOUNTS. INDEPENDENT IN ROOM. HEAD TO TOE ASSESSMENT COMPLETE. STUDENT NURSE GAVE AM MEDS, SEE CHARTING. POTASSIUM GIVEN PER PROTOCOL. AM K+ WAS 3.0. NO OTHER NEEDS AT THIS TIME. CALL LIGHT IN REACH.
--- NOTE | 2021-01-11 09:35 | NUR ---
GALINA met with the patient to discuss discharge plan. The patient states that she lives in [place]. She gave SW her PO box. SW began asking the other intake questions. The patient states that she does not want to answer SW's questions. She states that the hospital should already have want she wants on file. Her PCP is Dr. Ankit Mahan and she receives her medications from [email or web address] The patient does not have a DPOA-HC. The patient states that she does not want a DPOA-HC. SW informed her about her her legal next of kin would be her decision maker, if she were to ever not be able to make decisions. The patient states that Pastor Wudley (ph#[phone]) is listed as her person to contact and that is who she would want notified of anything, if needed. This SW met with the patient during her last hospital stay. The patient had informed SW that she is homeless and lives in her car. SW attempted to address this and discuss resourses with the patient. The patient states that she does not want to answer any of GALINA's questions. The patient states that she has no concerns for SW about discharge.
[2021-01-11 13:03] VITALS: BP 115/57; PULSE 92; TEMP 98.7
[2021-01-11 17:19] VITALS: BP 146/66; PULSE 87; TEMP 99.7
[2021-01-11 20:16] VITALS: BP 148/59; PULSE 101; TEMP 97.7
[2021-01-11 20:24] VITALS: BP 153/70; PULSE 87; TEMP 98.9
[2021-01-12 00:07] VITALS: BP 140/64; PULSE 87; TEMP 98.9
[2021-01-12 04:28] VITALS: BP 139/60; PULSE 90; TEMP 98.7
--- NOTE | 2021-01-12 05:23 | NUR ---
Patient had no complaints of pain or nausea throughout the shift. Tolerating general diet. She is getting up in her room independently. Zosyn infusing to left AC. No other needs at this time.
[2021-01-12 07:25] VITALS: BP 150/80; PULSE 91; TEMP 98.8
[2021-01-12 07:31] LABS: HEMOGLOBIN 11.1 g/dl (12.5-16.0); MEAN CELL VOLUME 84 fl (80.0-100.0); MEAN CORPUSCULAR HEMOGLOBIN 26 pg (27.0-31.0); MEAN CORPUSCULAR HGB CONC 31 g/dl (33.0-37.0); MEAN PLATELET VOLUME 9.6 fl (7.4-10.4); PLATELET COUNT 296 K/mm3 (130-400); RED BLOOD COUNT 4.24 M/mm3 (4.10-5.30); REDCELL DISTRIBUTION WIDTH-CV 15.3 % (11.5-14.5)
[2021-01-12 07:37] LABS: CREATININE, serum 0.76 (0.52-1.25); POTASSIUM 3.4 mmol/L (3.4-5.0)
[2021-01-12 07:40] LABS: HEMATOCRIT 35.4 % (37.0-47.0)
--- NOTE | 2021-01-12 09:32 | NUR ---
Initial visit; Patient remembers former visits with Executive Compensation Analyst and was receptive to Executive Compensation Analyst keeping her in Executive Compensation Analyst's prayers. Patient thanked Executive Compensation Analyst for her kindness.
[2021-01-12] MEDS ORDERED: AMOXICILLIN 8751 TAB PO (11:01)
[2021-01-12] MEDS ORDERED: ZOFRAN ODT4 MG PO (11:02)
[2021-01-12 11:09] VITALS: BP 148/66; PULSE 86; TEMP 98.8
--- NOTE | 2021-01-12 11:27 | NUR ---
PT UP TO BR INDEPENDENTLY, ASSESSMENTS COMPLETE WITH IDRIS MASSEY TRACK LAYING EQUIPMENT OPERATOR. IV TO LAC TKO. VSS, PT DENIES NEEDS. PT SITTING ON SIDE OF BED TOLERATING GENERAL DIET. VOIDED, LOOSE STOOLS REPORTED.
--- NOTE | 2021-01-12 13:19 | NUR ---
REVIEWED DISCHARGE INSTRUCTIONS WITH PT. QUESTIONS SOLICITED AND ANSWERED. DR. ROBLES REVIEWED ABX ORDER WITH PT. PT VERBALIZED UNDERSTANDING.
== END 2021-01-12 13:15 | disposition home or self-care (01) | DRG 872 ==
LOC: COL.ER 10:09 → SURG 12:45
PROVIDERS: Nurse Practitioner Primary Care; Physician Assistant; ADMIT Hospitalist
DX: A41.9 Sepsis, unspecified organism (principal); I48.92 Unspecified atrial flutter; K57.92 Diverticulitis of intestine, part unspecified, without perforation or abscess without bleeding; E87.6 Hypokalemia; I95.9 Hypotension, unspecified; E03.9 Hypothyroidism, unspecified; Z20.822 Contact with and (suspected) exposure to COVID-19; J45.909 Unspecified asthma, uncomplicated; M79.3 Panniculitis, unspecified; E66.9 Obesity, unspecified; Z86.718 Personal history of other venous thrombosis and embolism; Z86.711 Personal history of pulmonary embolism; Z90.13 Acquired absence of bilateral breasts and nipples; Z85.3 Personal history of malignant neoplasm of breast
CPT/HCPCS: 99222-AI; 99239; J0744; J2405; J2543; J2550; J7030; Q9967

== ENCOUNTER → 2021-02-10 | Outpatient (CLI) | payer BC ==
[~2021-02-10] MED LIST changes: +AMOXICILLIN 8751 TAB PO; +CRUTCHES MC; +HCTZ12.5TAB PO; +KAPSPARGO SPRIN25 MG PO; +LIPITOR 10MG10 MG PO; +SYNTHROID0.05 MG/TA PO; +SYNTHROID0.112 MG/T PO; +TAMBOCOR50 MG PO; +ZOFRAN ODT4 MG PO
== END ==
LOC: COL.LAB 08:51
DX: Z01.812 Encounter for preprocedural laboratory examination (principal); Z20.822 Contact with and (suspected) exposure to COVID-19

== ENCOUNTER 2021-02-13 21:26 | Emergency (ER) | payer BC ==
[~2021-02-13] VITALS: Ht 177.8 cm; Wt 120.9 kg
[~2021-02-13 21:26] MED LIST changes: -CRUTCHES MC
[2021-02-13] MEDS ORDERED: CRUTCHES MC (22:36)
[2021-02-13 22:45] VITALS: BP 157/85; PULSE 100; TEMP 98.1
== END 2021-02-13 22:45 | disposition home or self-care (01) ==
LOC: COL.ER 21:26
DX: M25.561 Pain in right knee (principal); I48.91 Unspecified atrial fibrillation; J45.909 Unspecified asthma, uncomplicated; E03.9 Hypothyroidism, unspecified; E66.9 Obesity, unspecified; E78.5 Hyperlipidemia, unspecified; Z86.718 Personal history of other venous thrombosis and embolism; Z86.711 Personal history of pulmonary embolism; Z79.01 Long term (current) use of anticoagulants; Z88.1 Allergy status to other antibiotic agents; Z79.890 Hormone replacement therapy; Z79.899 Other long term (current) drug therapy; X50.1XXA Overexertion from prolonged static or awkward postures, initial encounter
CPT/HCPCS: 31869; L1830

== ENCOUNTER → 2021-07-14 | Outpatient (CLI) | payer BC ==
[~2021-07-14] MED LIST changes: +CRUTCHES MC
== END ==
LOC: MC.RAD 07:40
DX: Z90.13 Acquired absence of bilateral breasts and nipples (principal); Z98.82 Breast implant status; Z98.890 Other specified postprocedural states

== ENCOUNTER → 2021-08-24 | Outpatient (CLI) | payer BC | LOC: ZCOL.LAB 09:39 | DX: Z01.818 Encounter for other preprocedural examination (principal); Z20.822 Contact with and (suspected) exposure to COVID-19 ==

== ENCOUNTER → 2021-12-06 | Outpatient (CLI) | payer BC ==
[2021-12-06 09:41] LABS: BASO % 0.3 % (0.0-2.0); EOS # 0.2 K/mm3 (0.0-0.7); EOS % 1.3 % (0.0-4.0); GRAN # 8.2 K/mm3 (1.4-6.5); GRAN % 69.6 % (42.2-75.2); HEMATOCRIT 37.5 % (37.0-47.0); HEMOGLOBIN 11.8 g/dl (12.5-16.0); LYMPH # 2.3 K/mm3 (1.2-3.4); LYMPH % 19.2 % (20.0-51.0); MEAN CELL VOLUME 83 fl (80.0-100.0); MEAN CORPUSCULAR HEMOGLOBIN 26 pg (27-31); MEAN CORPUSCULAR HGB CONC 32 g/dl (33.0-37.0); MONO # 1.1 K/mm3 (0.1-0.6); MONO % 9.2 % (1.7-9.3); PLATELET COUNT 344 K/mm3 (130-400); RED BLOOD COUNT 4.54 M/mm3 (4.10-5.30); REDCELL DISTRIBUTION WIDTH-CV 14.4 % (11.5-14.5)
[2021-12-06 09:56] LABS: ALBUMIN 3.6 gm/dL (3.4-4.8); BILIRUBIN,TOTAL 0.5 mg/dL (0.2-1.2); C-REACTIVE PROTEIN 2.74 mg/dL (0.00-0.50); CALCIUM 9.2 mg/dL (8.4-10.2); CREATININE, serum 1.3 mg/dL (0.57-1.11); POTASSIUM 3.8 mmol/L (3.5-4.5); TOTAL PROTEIN 7.3 gm/dL (6.2-8.1)
[2021-12-06 10:15] LABS: ERYTHROCYTE SEDIMENTATION RATE 16 mm/hr (0-30)
== END ==
LOC: COL.LAB 09:23
PROVIDERS: Family Medicine
DX: R06.00 Dyspnea, unspecified (principal)

== ENCOUNTER → 2022-08-24 | Outpatient (CLI) | payer BC | LOC: COL.RAD 10:24 | DX: R51.9 Headache, unspecified (principal); Z85.3 Personal history of malignant neoplasm of breast | CPT/HCPCS: A9575 ==

== ENCOUNTER 2023-01-30 18:31 | Emergency (ER) | payer BC ==
[~2023-01-30] VITALS: Ht 177.8 cm; Wt 128.2 kg
[2023-01-30 18:43] VITALS: BP 151/82; TEMP 98.6
[2023-01-30] MEDS ORDERED: DOXYCYCLINE 10100 MG PO (19:08)
[2023-01-30 19:20] VITALS: PULSE 97
== END 2023-01-30 19:20 | disposition home or self-care (01) ==
LOC: COL.ER 18:31
DX: L03.113 Cellulitis of right upper limb (principal); I83.013 Varicose veins of right lower extremity with ulcer of ankle; I87.2 Venous insufficiency (chronic) (peripheral); L97.319 Non-pressure chronic ulcer of right ankle with unspecified severity; E66.9 Obesity, unspecified; Z88.0 Allergy status to penicillin; Z88.1 Allergy status to other antibiotic agents; Z68.41 Body mass index [BMI] 40.0-44.9, adult

== ENCOUNTER → 2023-08-14 | Outpatient (CLI) | payer BC ==
[2023-08-14 14:33] LABS: BASO % 0.4 % (0.0-2.0); EOS # 0.2 K/mm3 (0.0-0.7); EOS % 1.8 % (0.0-4.0); GRAN # 8.6 K/mm3 (1.4-6.5); GRAN % 76.4 % (42.2-75.2); HEMATOCRIT 38.4 % (37.0-47.0); HEMOGLOBIN 11.7 g/dl (12.5-16.0); LYMPH # 1.8 K/mm3 (1.2-3.4); LYMPH % 15.9 % (20.0-51.0); MEAN CELL VOLUME 84 fl (80.0-100.0); MEAN CORPUSCULAR HEMOGLOBIN 26 pg (27-31); MEAN CORPUSCULAR HGB CONC 31 g/dl (33.0-37.0); MONO # 0.6 K/mm3 (0.1-0.6); MONO % 5.1 % (1.7-9.3); PLATELET COUNT 357 K/mm3 (130-400); RED BLOOD COUNT 4.57 M/mm3 (4.10-5.30); REDCELL DISTRIBUTION WIDTH-CV 15.6 % (11.5-14.5)
[2023-08-14 15:00] LABS: ERYTHROCYTE SEDIMENTATION RATE 14 mm/hr (0-30)
[2023-08-14 15:07] LABS: ALANINE AMINOTRANSFERASE 14 U/L (0-55); ALBUMIN 3.4 gm/dL (3.4-4.8); ALKALINE PHOSPHATASE 89 U/L (40-150); ANION GAP 13 mmol/L (7-16); AST,SGOT 17 U/L (5-34); BILIRUBIN,TOTAL 0.6 mg/dL (0.2-1.2); BLOOD UREA NITROGEN 14 mg/dL (10-20); C-REACTIVE PROTEIN 2.98 mg/dL (0.00-0.50); CALCIUM 9.5 mg/dL (8.4-10.2); CARBON DIOXIDE 26 mmol/L (23-31); CHLORIDE 103 mmol/L (98-107); CHOLESTEROL 150 mg/dL (0-199); CHOLESTEROL RISK RATIO 4.8; CREATINE KINASE 66 U/L (29-168); CREATININE, serum 0.98 mg/dL (0.57-1.11); GLUCOSE 143 mg/dL (70-99); HDL CHOLESTEROL 31 mg/dL (40-60); LDL CHOLESTEROL 103 mg/dL; POTASSIUM 3.9 mmol/L (3.5-4.5); SODIUM 142 mmol/L (136-145); TOTAL PROTEIN 7.4 gm/dL (6.2-8.1); TRIGLYCERIDE 80 mg/dL (0-149)
[2023-08-14 15:28] LABS: TSH w REFLEX 0.383 uIU/mL (0.350-4.940)
[2023-08-14 15:33] LABS: TROPONIN-I < 0.010 ng/mL (0.00-0.033)
== END ==
LOC: COL.LAB 14:01
PROVIDERS: Nurse Practitioner
DX: R07.9 Chest pain, unspecified (principal); E03.9 Hypothyroidism, unspecified; E78.5 Hyperlipidemia, unspecified

== ENCOUNTER 2024-06-09 13:25 | Inpatient (IN) | payer BC ==
[~2024-06-09] VITALS: Ht 177.8 cm; Wt 132.2 kg
[~2024-06-09 13:25] MED LIST changes: -KAPSPARGO SPRIN25 MG PO; -LIPITOR 10MG10 MG PO; +LIPITOR 80MG80 MG PO; +MASON NATURAL2000 IU PO; +PERCOCET 325 MG1 TA2 PO; +TOPROL XL 25MG25 MG PO; -VITAMIND3 5000 PO
[2024-06-09] MEDS ORDERED: Acetaminophen 325 MG TAB PO ONE (14:15)
[2024-06-09] MEDS ORDERED: NS 1,000 ML IV SCH (14:15)
[2024-06-09] MEDS ORDERED: Ondansetron 4 MG/2 ML VIAL IV ONE (14:15)
[2024-06-09 14:44] LABS: HEMOGLOBIN 11.4 g/dl (12.5-16.0); MEAN CELL VOLUME 79 fl (80.0-100.0); MEAN CORPUSCULAR HEMOGLOBIN 26 pg (27-31); MEAN CORPUSCULAR HGB CONC 33 g/dl (33.0-37.0); MEAN PLATELET VOLUME 9.1 fl (7.4-10.4); PLATELET COUNT 356 K/mm3 (130-400); RED BLOOD COUNT 4.41 M/mm3 (4.10-5.30); REDCELL DISTRIBUTION WIDTH-CV 15.6 % (11.5-14.5)
[2024-06-09 14:56] LABS: ALBUMIN 2.9 g/dL (3.4-4.8); CALCIUM 8.8 mg/dL (8.4-10.2); CREATININE, serum 0.93 mg/dL (0.57-1.11); POTASSIUM 3.2 mEq/L (3.5-4.5); TOTAL PROTEIN 7.8 g/dl (6.2-8.1)
[2024-06-09 15:51] LABS: ANISOCYTOSIS 1+; BAND 5 % (0-10); HYPOCHROMIA 1+; LYMPHOCYTE 9 % (20.0-51.0); MICROCYTOSIS 1+; NEUTROPHILS 84 % (42.0-75.2); PLATELET ESTIMATE NORMAL (NORMAL)
[2024-06-09] MEDS ORDERED: Iohexol 300 - 100 ML VIAL IV ONE (15:53)
[2024-06-09 15:58] LABS: COLLECTION METHOD CLEAN CATCH
[2024-06-09 16:10] LABS: URINE APPEARANCE CLEAR (CLEAR/HAZY); URINE COLOR YELLOW (YELLOW); URINE GLUCOSE NEGATIVE (NEGATIVE); URINE KETONE NEGATIVE (NEGATIVE); URINE PROTEIN(semi-quant) TRACE (NEGATIVE); URINE UROBILINOGEN 0.2 E.U/dL (0.2-1.0)
[2024-06-09 16:11] LABS: URINE BLOOD 2+ (NEGATIVE); URINE NITRATE NEGATIVE (NEGATIVE)
[2024-06-09 17:00] VITALS: BP_SYST 119
[2024-06-09] MEDS ORDERED: SYNTHROID0.175 MG PO (17:11)
[2024-06-09] MEDS ORDERED: ELIQUIS 5MG PO (17:12)
[2024-06-09] MEDS ORDERED: PRENATAL TABLET PO (17:42)
[2024-06-09] MEDS ORDERED: NATURAL IRON65 MG PO (17:43)
[2024-06-09] MEDS ORDERED: LOVAZA1 GM PO (17:43)
[2024-06-09 17:53] VITALS: BP 119/67; PULSE 109; TEMP 100.2
[2024-06-09] MEDS ORDERED: Ibuprofen 200 MG TAB PO PRN (18:00)
[2024-06-09] MEDS ORDERED: Ondansetron 4 MG/2 ML VIAL IV PRN (18:00)
[2024-06-09] MEDS ORDERED: *Potassium Replacement Protocol MC SCH (18:00)
--- NOTE | 2024-06-09 18:40 | NUR ---
PATIENT RESTING SITTING ON EDGE OF BED WITH TV OFF WITH NO FAMILY PRESENT WITH NO ACUTE DISTRESS NOTED. PATIENT ON ROOM AIR. VANCOMYCIN INFUSING INTO LEFT AC WITH NO COMPLICATIONS NOTED. PATIENT CONTINUING TO HAVE DRY HEAVES. BEDSIDE SHIFT REPORT COMPLETED WITH NELLA AT THIS TIME. PATIENT DENIES ANY NEEDS. BED IN LOW POSITION WITH WHEELS LOCKED WITH RAILS UP X2 AND CALL LIGHT WITHIN REACH.
--- NOTE | 2024-06-09 18:52 | NUR ---
PATIENT ARRIVED TO FLOOR FROM ED. INCREASED TEMP OF 102.0, MOTRIN GIVEN ORDERED. BP ELEVEATED AND HR ELEVATED, PLEASE SEE CHART. PATIENT COMPLAINING OF NAUSEA ZOFRAN GIVEN ORDERED. PATIENT HAS SWELLING TO BILATERAL LEGS W/ HAET AND REDNESS TO THE RIGHT LOW EXTRIMITY. PATEITN COMPLAINS OF CONSTANT HEADACHE THAT HAS BEEN GOING ON FOR MULTIPLE DAYS. PATIENT ALSO STATES SHE HAS BEEN UNABLE TO EAT SINCE SUNDAY. ALL REPORTED TO HOSPITALIST. PATIENT HAS NO OTHER CONCERNS AT THIS TIME. MED REC AND ADMISSION COMPLETE.
[2024-06-09] MEDS ORDERED: Albuterol 0.021% Neb Soln 0.63 MG/3 ML UD IH PRN (19:00)
[2024-06-09 19:31] VITALS: BP 120/57; PULSE 104; TEMP 100.1
[2024-06-09 19:59] VITALS: BP_SYST 120
--- NOTE | 2024-06-09 19:59 | NUR ---
PATIENT RESTING SITTING UP ON EDGE OF BED WITH TV OFF WITH NO FAMILY PRESENT WITH NO ACUTE DISTRESS NOTED. PATIENT ON ROOM AIR. VANCOMYCIN INFUSING INTO LEFT AC WITH NO COMPLICATIONS NOTED. PATIENT STATES PAIN LEVEL IS 3 ON SCALE OF 0 TO 10. INITAL ASSESSMENT AND MEDICATION ADMINISTRATION COMPLETED AT THIS TIME. PATIENT TOLERATED WELL. PATIENT REQUESTED CRANBERRY JUICE AND WAS GIVEN. PATIENT DENIES ANY OTHER NEEDS. BED IN LOW POSITION WITH WHEELS LOCKED WITH RAILS UP X2 AND CALL LIGHT WITHIN REACH.
[2024-06-09] MEDS ORDERED: Atorvastatin 80 MG TAB PO SCH (21:00)
[2024-06-09] MEDS ORDERED: Apixaban 5 MG TABLET PO SCH (21:00)
[2024-06-09] MEDS ORDERED: Cefepime 1 G in Water For Injection,Sterile 10 ML IV SCH (22:00)
[2024-06-09 23:44] VITALS: BP 110/66; PULSE 86; TEMP 98.3
[2024-06-10] VITALS (12 sets, daily range): BP systolic 99–123; BP diastolic 56–73; PULSE 80–101; TEMP 98.1–99.8
--- NOTE | 2024-06-10 04:52 | NUR ---
HOSPITALIST SEBASTIAN BURNETT APRN CALLED FOR PATIENT C/O DRY EYES AND HEMATURIA. LIGHT RED URINE NOTED IN TOILET WITH SMALL BLOOD CLOTS. ORDER RECIEVED FOR REFRESH EYE DROPS 1 DROP EACH EYE BID AND NOW. NO NEW ORDERS FOR HEMATURIA DUE TO PATIENT BEING ON ELIQUIS.
[2024-06-10] MEDS ORDERED: Carboxymethylcellulose PF Ophth 0.4 ML DROPPERETTE OP SCH (05:06)
[2024-06-10 07:15] LABS: BASO % 0.2 % (0.0-2.0); EOS % 0.1 % (0.0-4.0); GRAN # 14.5 K/mm3 (1.4-6.5); GRAN % 87.8 % (42.2-75.2); HEMOGLOBIN 10.4 g/dl (12.5-16.0); LYMPH % 5.9 % (20.0-51.0); MEAN CELL VOLUME 78 fl (80.0-100.0); MEAN CORPUSCULAR HEMOGLOBIN 25 pg (27-31); MEAN CORPUSCULAR HGB CONC 33 g/dl (33.0-37.0); MEAN PLATELET VOLUME 9.3 fl (7.4-10.4); MONO # 0.9 K/mm3 (0.1-0.6); MONO % 5.2 % (1.7-9.3); PLATELET COUNT 292 K/mm3 (130-400); RED BLOOD COUNT 4.11 M/mm3 (4.10-5.30); REDCELL DISTRIBUTION WIDTH-CV 15.6 % (11.5-14.5)
[2024-06-10 07:17] LABS: ALBUMIN 2.4 g/dL (3.4-4.8); CALCIUM 8.3 mg/dL (8.4-10.2); CREATININE, serum 0.84 mg/dL (0.57-1.11); PHOSPHOROUS 1.5 mg/dL (2.3-4.7)
--- NOTE | 2024-06-10 07:30 | NUR ---
PATIENT AWAKE AND ALERT,SHAKING IN BED. PATIENT JUST STATES SHE FEELS UNWELL. AND IS NAUSOUS. CALL LIGHT WITHIN REACH
--- NOTE | 2024-06-10 08:15 | NUR ---
CONTACTED FOR [facility] MED. PATIENT STILL HAVING BAD DRY HEEVES. MD CONTACTED AND TO PLACE NEW ORDERS.
[2024-06-10] MEDS ORDERED: hydroCHLOROthiazide 12.5 MG CAP PO SCH (09:00)
--- NOTE | 2024-06-10 09:45 | NUR ---
PATIENT ASSISTED BY PCT SHOWER. LINEN CHANGED.
--- NOTE | 2024-06-10 11:00 | NUR ---
PATIENT NOW RESTING IN BED. CALL LIGHT WITHIN REACH. PATIENT DRESSING TO RLE PLACED AFTER MD ASSESSED. PATIENT AWARE OF NEEDED POTASIUM REPLACEMENT AND NEW SODIUM PHOSPHATE INFUSION. ADVANCED IV CALLED TWO TIMES FOR ASSISTANCE WTIH NEW IV PLACEMENT SO THAT THIS RN CAN REPLACE PATIENTS K. AWAITING CALL BACK
--- NOTE | 2024-06-10 11:23 | NUR ---
fitness worker met with pt to discuss discharge planning. She reports to live alone in [place]. She sees Dr. Mahan for PCP needs and obtains medications from [facility] with no difficulties. She reports to be independent with ADLS and uses a cane and CPAP for DME. She states Pastor Hurd [phone] is her contact and she does not have a DPOA-HC and declines one. She reports to want to inform [facility] that she is in the hospital. GALINA confirmed with Main GALINA Parsons who advised on this. GALINA faxed [facility] HR a letter of admission/notification to the hospital on pt's behalf. PT/OT pending Discharge Plan: home
--- NOTE | 2024-06-10 11:35 | NUR ---
SODIUM PHOSPHATE INFUSING BEGAN. THIS RN RECIEVED CALL BACK [facility] AND THEY WILL PLACE NEW IV SOON AVAILABLE. PATIENT AWARE AND IN AGREEMENT
[2024-06-10] MEDS ORDERED: Potassium Chloride 100 ML IV SCH (11:45)
[2024-06-10] MEDS ORDERED: [UNRECOGNIZED DRUG - OTHER] IV ONE (12:00)
[2024-06-10] MEDS ORDERED: NS IV ONE (12:00)
[2024-06-10] MEDS ORDERED: SODIUM PHOSPHATE IV ONE (12:00)
--- NOTE | 2024-06-10 13:00 | NUR ---
PATIENT DID NOT TOELRATE IV POTASSIUM MD CALLED AND PLACED ORDERS FOR NS WITH 40K X1 BAG ONLY. POTASSIUM BAG REPLACEMENT DISCONTINUED.
[2024-06-10] MEDS ORDERED: NS & 40 mEq KCl 1,000 ML IV ONE (14:00)
--- NOTE | 2024-06-10 16:46 | NUR ---
PATIENT ASLEEP, CURRENTLY RESTING IN BED. PATIEN DENIES ANYNEEDS OR COMPLAITNS AT THIS TIME. CALL LIGHT WTIHIN REACH. FALL PRECAUTIOSN IN PLACE
--- NOTE | 2024-06-10 19:00 | NUR ---
BEDSIDE SHIFT REPORT GIVEN. PATIENT IS ASLEEP, RESTING IN BED.RESPIRATIONS WNL , PATIETN APPEARS TO BE IN NO ACUTE DISTRESS. IVF INFUSING ORDERED (NIGHT RN AWARE NS WITH 40K IS A ONE TIME ORDER FOR 1L). IV VANC INFUSING. CALL LIGHT WTIHIN REACH, DRESSING TO RLE INTACT.
--- NOTE | 2024-06-10 20:16 | NUR ---
PATIENT IS SITTING UP IN CHAIR. STATES THE PAIN SHE HAD BEEN EXPERIENCING IN HER RIGHT CALF HAS IMPROVED GREATLY AND CURRENTLY RATES IT 1/10. AMBULATES INDEPENDANTLY WITH CANE AND IS PRESENTLY STABLE ON ROOM AIR. CALL LIGHT IS WITHIN REACH.
--- NOTE | 2024-06-10 21:42 | NUR ---
RN CALLED THIS RT TO PATIENT'S ROOM TO DISCUSS HOME CPAP USE. PT STATES SHE DOES NOT HAVE THE OBST SLEEP APNEA, BUT THE OTHER ONE. THIS RT STARTED PT ON CPAP 8, 30%. WILL MONITOR PATIENT CLOSELY ON V60 TO SEE IF PATIENT IS HAVING CENTRALS. PATIENT IS PRETTY CONFIDENT THAT HER MACHINE AT HOME IS A CPAP. PATIENT STATES SHE DOES NOT HAVE ANYONE AT HOME TO BRING HER MACHINE. PT NOT COMPLAINING OF DYSPNEA OR SHOWING DISTRESS AT THIS TIME.
[2024-06-11] VITALS (12 sets, daily range): BP systolic 92–140; BP diastolic 56–79; PULSE 79–94; TEMP 98.2–101
--- NOTE | 2024-06-11 04:30 | NUR ---
PATIENT HAD BEEN TRYING TO GET OUT OF BED WHEN TELESITTER ALARM WENT OFF AND TOLD HER TO STAY IN BED, TO WHICH PATIENT RESPONDED AND SAID "I'LL DO WANT I WANT", TELESITTER RESPONDED WITH "NO YOU WON'T YOU'RE IN THE HOSPITAL". PATIENT DID LAY BACK DOWN.
[2024-06-11 07:17] LABS: BASO # 0.1 K/mm3 (0.0-0.2); BASO % 0.3 % (0.0-2.0); EOS # 0.1 K/mm3 (0.0-0.7); EOS % 0.8 % (0.0-4.0); GRAN # 12.1 K/mm3 (1.4-6.5); GRAN % 79.1 % (42.2-75.2); LYMPH # 1.6 K/mm3 (1.2-3.4); LYMPH % 10.2 % (20.0-51.0); MEAN CELL VOLUME 80 fl (80.0-100.0); MEAN CORPUSCULAR HGB CONC 32 g/dl (33.0-37.0); MEAN PLATELET VOLUME 9.4 fl (7.4-10.4); MONO # 1.4 K/mm3 (0.1-0.6); MONO % 8.9 % (1.7-9.3); PLATELET COUNT 259 K/mm3 (130-400); RED BLOOD COUNT 3.43 M/mm3 (4.10-5.30); REDCELL DISTRIBUTION WIDTH-CV 15.9 % (11.5-14.5)
[2024-06-11 07:21] LABS: HEMATOCRIT 27.4 % (37.0-47.0); HEMOGLOBIN 8.8 g/dl (12.5-16.0); MEAN CORPUSCULAR HEMOGLOBIN 26 pg (27-31)
[2024-06-11 07:39] LABS: ALBUMIN 2.1 g/dL (3.4-4.8); CREATININE, serum 0.74 mg/dL (0.57-1.11); PHOSPHOROUS 1.9 mg/dL (2.3-4.7)
[2024-06-11] MEDS ORDERED: Potassium Bicarbonate/Citrate 20 MEQ Effervescent TAB PO SCH (08:30)
[2024-06-11] MEDS ORDERED: ceFAZolin 2 G in Water For Injection,Sterile 20 ML IV SCH (08:45)
[2024-06-11] MEDS ORDERED: Carboxymethylcellulose PF Ophth 0.4 ML DROPPERETTE OP SCH (09:00)
--- NOTE | 2024-06-11 09:38 | NUR ---
Report received from JASON Archer in the ED.
--- NOTE | 2024-06-11 10:00 | NUR ---
Patient finished with shower, sitting in bed. Requested dressing to be applied before working with physical therapy. Dressing to right calf and webb changed- placed abd pad x2, wrapped with a kerlix and roxy bandage. Physical Therapy assited patient to chair. Fall precautions in place.
--- NOTE | 2024-06-11 12:00 | NUR ---
Noted blood on toliet in the bathroom. Patient reports that she has had vaginal bleeding and seen a specialist. She reports that she was only told that she "didn't have cancer." Dr. Kinney notified, no new orders received.
--- NOTE | 2024-06-11 15:49 | NUR ---
Purchasing Director met with patient to review discharge planning. Patient stated she wants to return home at time of discharge. SW discussed Home Health as an option and patient stated she would consider this.
--- NOTE | 2024-06-11 18:56 | NUR ---
Lab reports to this nurse having difficulty drawing labs this morning. Vancomycin labs drawn from right thigh at this time. Zofran administered IVP for c/o nausea. Patient reports that the effer K is most likely what is causing her discomfort. Provided patient with soda crackers and sprite. Patient currently lying in bed with HOB at 45 degrees. Bedside report given to Eugenia Yu RN. Eugenia will administer IV Vancomycin once the trough is resulted.
--- NOTE | 2024-06-11 20:48 | NUR ---
PATIENT RESTING IN BED. REPORTING NAUSEA AND BURNING ABDOMINAL PAIN FOLLLOWING EFFER-K. REPORTS PAIN 5/10 AND IS REQUESTING MOTRIN. DENIES SHORTNESS OF BREATH OR CHEST PAIN. CALL LIGHT IS WITHIN REACH. BED IS LOCKED AND IN LOW POSITION.
[2024-06-12] VITALS (12 sets, daily range): BP systolic 92–141; BP diastolic 68–84; PULSE 65–93; TEMP 98–100
--- NOTE | 2024-06-12 00:47 | NUR ---
22g INT placed to right upper arm x1 attempt by this nurse. Good blood return and flushes well. Report given to JASON Bello, primary nurse.
--- NOTE | 2024-06-12 00:50 | NUR ---
PROJECT DEVELOPMENT MANAGER ESTABLISHED NEW IV 22G IV SITE IN LEFT UPPER ARM.
[2024-06-12 06:42] LABS: BASO # 0.1 K/mm3 (0.0-0.2); BASO % 0.3 % (0.0-2.0); EOS # 0.2 K/mm3 (0.0-0.7); EOS % 1.4 % (0.0-4.0); GRAN # 10.6 K/mm3 (1.4-6.5); GRAN % 71.9 % (42.2-75.2); LYMPH # 2.4 K/mm3 (1.2-3.4); LYMPH % 16.1 % (20.0-51.0); MEAN CELL VOLUME 80 fl (80.0-100.0); MEAN CORPUSCULAR HGB CONC 32 g/dl (33.0-37.0); MEAN PLATELET VOLUME 9.7 fl (7.4-10.4); MONO # 1.4 K/mm3 (0.1-0.6); MONO % 9.1 % (1.7-9.3); PLATELET COUNT 277 K/mm3 (130-400); RED BLOOD COUNT 3.36 M/mm3 (4.10-5.30); REDCELL DISTRIBUTION WIDTH-CV 15.9 % (11.5-14.5)
[2024-06-12 06:43] LABS: HEMOGLOBIN 8.5 g/dl (12.5-16.0); MEAN CORPUSCULAR HEMOGLOBIN 25 pg (27-31)
[2024-06-12 07:08] LABS: ALBUMIN 2.1 g/dL (3.4-4.8); CALCIUM 8.2 mg/dL (8.4-10.2); CREATININE, serum 0.82 mg/dL (0.57-1.11)
[2024-06-12 07:44] LABS: MAGNESIUM 1.8 mg/dL (1.6-2.6); PHOSPHOROUS 1.6 mg/dL (2.3-4.7)
[2024-06-12] MEDS ORDERED: Potassium Bicarbonate/Citrate 20 MEQ Effervescent TAB PO SCH (08:15)
[2024-06-12] MEDS ORDERED: [UNRECOGNIZED DRUG - OTHER] IV ONE (09:30)
[2024-06-12] MEDS ORDERED: NS IV ONE (09:30)
[2024-06-12] MEDS ORDERED: POTASSIUM PHOSHATE IV ONE (09:30)
--- NOTE | 2024-06-12 09:55 | NUR ---
Assessment completed. Patient resting on her left side. A/O x4. Denies pain or nausea. Dressing to RLE changed, after patient showered, by Pennie Randall APRN. Dressing CDI. Potassium being replaced with Klorcon- educated patient on having a snack with each dose to reduce the chance of nausea. Soda crackers at bedside. Verbalizes undertanding. Denies needs at this time. Pt no longer c/o dizziness, gait steady. Fall precautions changed to low risk.
--- NOTE | 2024-06-12 19:36 | NUR ---
Patient tolerated Klorcon tablets today, without c/o nausea. Has been independent in room. Continues to have vaginal bleeding- Dr. Kinney aware. Denies pain or needs at this time.
--- NOTE | 2024-06-12 21:02 | NUR ---
PATIENT RESTING IN BED WITH EYES CLOSED, EASILY ROUSED. DENIES PAIN AT THIS TIME. CALL LIGHT IS WITHIN REACH. BED IS LOCKED AND IN LOW POSITION
--- NOTE | 2024-06-12 23:48 | NUR ---
WHEN ADMINISTERING PATIENT'S ORDERED ANCEF, PATIENT READ ON HER WHITEBOARD THAT ONE OF HER GOALS IS TO WORK WITH THERAPY. HOWEVER, PATIENT STATED SHE DID NOT WANT THERAPY IN HER ROOM OR IN HER HOME BECAUSE WHEN THERAPY VISITED HER TODAY THEY HAD TRIED TO ASSIST HER IN BRUSHING HER TEETH. PATIENT STATED SHE'S "CLOSE TO THE SELVIN" AT [facility] AND "DOESN'T NEED SOMEONE TO TELL HER BRUSH HER TEETH" ALSO STATING THAT THE THERAPISTS ARE A BUNCH OF "LEECHES" AND "GOONS" AND WANTED TO HAVE THE GOAL OF WORKING WITH THERAPY REMOVED FROM HER WHITEBOARD. WHILE THIS RN WAS IN THE ROOM, TERESA MARI HAD COME IN TO TAKE HER VITALS AND PATIENT PULLED HER ARM AWAY WHILE PCT WAS ATTEMPTING TO READ HER WRISTBAND AND AGAIN WHEN SHE ATTEMPTED TO PLACE BLOOD PRESSURE CUFF.
[2024-06-13] VITALS (7 sets, daily range): BP systolic 120–131; BP diastolic 76–78; PULSE 73–78; TEMP 98.4–98.6
[2024-06-13 07:35] LABS: MEAN CELL VOLUME 81 fl (80.0-100.0); MEAN CORPUSCULAR HGB CONC 31 g/dl (33.0-37.0); PLATELET COUNT 345 K/mm3 (130-400); RED BLOOD COUNT 3.43 M/mm3 (4.10-5.30); REDCELL DISTRIBUTION WIDTH-CV 16.3 % (11.5-14.5)
[2024-06-13 07:42] LABS: HEMATOCRIT 27.7 % (37.0-47.0); HEMOGLOBIN 8.7 g/dl (12.5-16.0); MEAN CORPUSCULAR HEMOGLOBIN 25 pg (27-31)
[2024-06-13 07:54] LABS: ALBUMIN 2.1 g/dL (3.4-4.8); CALCIUM 8.2 mg/dL (8.4-10.2); CREATININE, serum 0.76 mg/dL (0.57-1.11); MAGNESIUM 1.7 mg/dL (1.6-2.6); PHOSPHOROUS 2.6 mg/dL (2.3-4.7); POTASSIUM 3.4 mEq/L (3.5-4.5)
--- NOTE | 2024-06-13 08:15 | NUR ---
Assessment completed. Pt sitting up to side of the bed upon entering room. Requesting shower. IV wrapped and BR set up for shower. Patient independent in room. Denies pain or needs.
[2024-06-13] MEDS ORDERED: Potassium Bicarbonate/Citrate 20 MEQ Effervescent TAB PO SCH (08:30)
[2024-06-13 09:35] LABS: ANISOCYTOSIS 1+; BAND 2 % (0-10); HYPOCHROMIA 1+; LYMPHOCYTE 26 % (20.0-51.0); NEUTROPHILS 62 % (42.0-75.2)
[2024-06-13 09:36] LABS: BURR CELLS 1+; MICROCYTOSIS 1+; OVALOCYTES 1+
[2024-06-13] MEDS ORDERED: ZYVOX 600MG600 MG PO (10:34)
--- NOTE | 2024-06-13 13:35 | NUR ---
Discharge instructions reveived with patient- verbalizes understanding. INT to LUE d/c'd with cath tip intact. Dressing to RLE changed after shower. Supplies sent with patient to get her through until her follow up appointment with wound care. Pt escorted to [facility] via wheelchair by this nurse and discharged to her car that is parked at a parking lot at [facility].
--- NOTE | 2024-06-13 14:45 | NUR ---
magazine worker met with patient to discuss home health. SW asked if patient would be open to speak with her about home health, patient stated no thanks. SW explained home health provides wound care in the home. Patient stated she would speak with the social service technician for a few minutes. SW presented [email or web address] list of options. Patient stated "the last people that were in here the other day put a bad taste in my mouth." SW explained the staff that worked with her in the hospital would not be the same as the home health staff. SW explained the options for wound care is at home with home health or at a wound care facility likely in [place]. Patient stated she works in [place] and would be open to going to the wound care clinic but was also interested in home health. Patient was not certain she wanted home health because she did not like people intruding in her business. SW left the Medicare.gov list and explained she can get it set up outside of the hospital as well. Discharge plan: Home
--- NOTE | 2024-06-16 13:48 | NUR ---
group worker attempted to contact patient to follow up regarding if she decided she wanted home health. The phone number patient provided was for her work which also listed one other person on it that could listen to voicemails, so social sciences instructor did not leave a message. group worker contacted Cesar at [facility], patient's PCP office. Cesar explained patient would not qualify for home health as she is not home bound but she has been reaching out to the patient to ensure she comes to her follow up appointment on Sunday. GALINA explained in the discharge summary she does have a wound care appointment also scheduled for 06/24/24 at 11:15 am. Cesar explained she would remind patient of this when she speaks with her but is having the same issue that patient's number is her work number and her emergency contact is in [place]. Cesar explained she would continue to monitor and follow up with patient. Discharge plan: Home
== END 2024-06-13 13:35 | disposition home health service (06) | DRG 872 ==
LOC: COL.ER 13:25 → MEDICAL 17:07 → EDBEDREQ 17:10 → MEDICAL 06-13 13:35
PROVIDERS: Physician Assistant; ADMIT Internal Medicine
PROC: 5A09457 Assistance with Respiratory Ventilation, 24-96 Consecutive Hours, Continuous Positive Airway Pressure (ICD-10-PCS; principal; 2024-06-10)
DX: A41.9 Sepsis, unspecified organism (principal); L03.115 Cellulitis of right lower limb; E87.1 Hypo-osmolality and hyponatremia; L97.819 Non-pressure chronic ulcer of other part of right lower leg with unspecified severity; E78.5 Hyperlipidemia, unspecified; E03.9 Hypothyroidism, unspecified; D25.9 Leiomyoma of uterus, unspecified; E87.6 Hypokalemia; Z20.822 Contact with and (suspected) exposure to COVID-19; E83.39 Other disorders of phosphorus metabolism; N20.0 Calculus of kidney; J45.909 Unspecified asthma, uncomplicated; I89.0 Lymphedema, not elsewhere classified; I10 Essential (primary) hypertension; I48.91 Unspecified atrial fibrillation; Z86.711 Personal history of pulmonary embolism; Z86.718 Personal history of other venous thrombosis and embolism; Z79.890 Hormone replacement therapy; Z85.3 Personal history of malignant neoplasm of breast; Z88.1 Allergy status to other antibiotic agents; Z88.8 Allergy status to other drugs, medicaments and biological substances; Z90.89 Acquired absence of other organs; Z79.899 Other long term (current) drug therapy; Z79.01 Long term (current) use of anticoagulants
CPT/HCPCS: J0688; J0692; J0780; J2405; J2543; J3370; J3480; J7030; J7040; J7050; Q9967

== ENCOUNTER 2024-06-24 09:51 | Emergency (ER) | payer BC ==
[~2024-06-24] VITALS: Ht 177.8 cm; Wt 120.5 kg
[~2024-06-24 09:51] MED LIST changes: +LOVAZA1 GM PO; +NATURAL IRON65 MG PO; +PRENATAL TABLET PO; +ZYVOX 600MG600 MG PO
[2024-06-24 10:00] VITALS: TEMP 98.3
[2024-06-24] MEDS ORDERED: NS 1,000 ML IV ONE (10:45)
[2024-06-24 10:55] LABS: BASO % 0.4 % (0.0-2.0); EOS # 0.1 K/mm3 (0.0-0.7); GRAN # 7.2 K/mm3 (1.4-6.5); GRAN % 68.6 % (42.2-75.2); HEMATOCRIT 37.1 % (37.0-47.0); HEMOGLOBIN 11.5 g/dl (12.5-16.0); LYMPH # 2.5 K/mm3 (1.2-3.4); LYMPH % 23.7 % (20.0-51.0); MEAN CELL VOLUME 82 fl (80.0-100.0); MEAN CORPUSCULAR HEMOGLOBIN 25 pg (27-31); MEAN CORPUSCULAR HGB CONC 31 g/dl (33.0-37.0); MEAN PLATELET VOLUME 8.3 fl (7.4-10.4); MONO # 0.6 K/mm3 (0.1-0.6); MONO % 5.8 % (1.7-9.3); PLATELET COUNT 445 K/mm3 (130-400); RED BLOOD COUNT 4.53 M/mm3 (4.10-5.30); REDCELL DISTRIBUTION WIDTH-CV 16.7 % (11.5-14.5)
[2024-06-24 11:01] LABS: ALANINE AMINOTRANSFERASE 28 U/L (0-55); ALBUMIN 3.3 g/dL (3.4-4.8); ALKALINE PHOSPHATASE 79 U/L (40-150); ANION GAP 12 mmol/L (7-16); AST,SGOT 34 U/L (5-34); BLOOD UREA NITROGEN 15 mg/dL (10-20); CALCIUM 9.1 mg/dL (8.4-10.2); CHLORIDE 103 mEq/L (98-107); CREATININE, serum 0.82 mg/dL (0.57-1.11); GLUCOSE 122 mg/dL (70-99); POTASSIUM 3.6 mEq/L (3.5-4.5); SODIUM 138 mEq/L (136-145); TOTAL PROTEIN 8.4 g/dl (6.2-8.1)
[2024-06-24 11:11] LABS: TROPONIN-I < 0.010 ng/mL (0.00-0.033)
[2024-06-24] MEDS ORDERED: Iohexol 300 - 100 ML VIAL IV ONE (11:22)
[2024-06-24] MEDS ORDERED: NS 100 ML IV SCH (11:22)
[2024-06-24 11:34] LABS: COLLECTION METHOD CLEAN CATCH
[2024-06-24 11:44] LABS: URINE APPEARANCE CLEAR (CLEAR/HAZY); URINE BLOOD 1+ (NEGATIVE); URINE COLOR YELLOW (YELLOW); URINE GLUCOSE NEGATIVE (NEGATIVE); URINE KETONE NEGATIVE (NEGATIVE); URINE NITRATE POSITIVE (NEGATIVE); URINE PROTEIN(semi-quant) NEGATIVE (NEGATIVE)
[2024-06-24] MEDS ORDERED: LEVAQUIN 5500 MG/TA1 PO (13:00)
--- NOTE | 2024-06-24 15:11 | NUR ---
GALINA received a call from JASON Alatorre requesting a conversation about HH services for pt, noting pt reports to have declined in the past due to "not having a home." GALINA advised she is familiar with her and that [facility] did receive a referral and it seems as though the might decline. JASON advised pt is here with her brother and was informed late into her admission that she is COVID positive. SW offered to print HH options to have pt review, call her tomorrow, or urged her to offer follow-up with her PCP. RN reports pt is discharged and she is wrapping her wound and can go home. She reports pt did not inform her of the homelessness or mobility concerns to warrant PT/OT. She will inform pt to follow-up with her PCP to assess and write HH orders (in her hotel.) RN was agreeable to this information.
[2024-06-24 15:18] VITALS: BP 145/69; PULSE 90
== END 2024-06-24 15:20 | disposition home or self-care (01) ==
LOC: COL.ER 09:51
PROVIDERS: Personal Emergency Response Attendant
DX: U07.1 COVID-19 (principal); N39.0 Urinary tract infection, site not specified; N93.9 Abnormal uterine and vaginal bleeding, unspecified; Z88.1 Allergy status to other antibiotic agents
CPT/HCPCS: J1956; J7030; Q9967